=== PATIENT | male | born 1960 | race Native Hawaiian/Other Pacific Islander ===

== ENCOUNTER 2018-09-03 10:21 | Outpatient (CLI) | payer OTHER ==
[2018-09-03 10:51] LABS: PLATELET COUNT 204 K/uL (142-355)
[2018-09-03 11:06] LABS: POTASSIUM 4.1 mmol/L (3.6-5.2)
== END 2018-09-03 21:05 | disposition home or self-care (01) ==
LOC: LABW 10:21
PROVIDERS: Internal Medicine
DX: N18.3 Chronic kidney disease, stage 3 (moderate) (principal)
CPT/HCPCS: 36415; 80053; 81000; 82043; 82306; 82330; 82552; 82570; 82607; 82746; 83036; 83735; 83970; 84100; 84155; 84439; 84443; 84550; 85027; 86039; 86160

== ENCOUNTER 2019-03-04 12:19 | Outpatient (CLI) | payer OTHER ==
[2019-03-04 13:21] LABS: PLATELET COUNT 195 K/uL (142-355)
[2019-03-04 13:40] LABS: POTASSIUM 4.5 mmol/L (3.6-5.2)
== END 2019-03-04 20:32 | disposition home or self-care (01) ==
LOC: LABW 12:19
PROVIDERS: Internal Medicine
DX: I12.9 Hypertensive chronic kidney disease with stage 1 through stage 4 chronic kidney disease, or unspecified chronic kidney disease (principal)
CPT/HCPCS: 36415; 80053; 81000; 82043; 82570; 83735; 84100; 85027

== ENCOUNTER 2019-08-29 10:40 | Outpatient (CLI) | payer OTHER ==
[2019-08-29 10:59] LABS: PLATELET COUNT 211 K/uL (142-355)
== END 2019-08-29 19:25 | disposition home or self-care (01) ==
LOC: LABW 10:40
PROVIDERS: Internal Medicine
DX: N18.3 Chronic kidney disease, stage 3 (moderate) (principal)
CPT/HCPCS: 36415; 80053; 81000; 82330; 82570; 83735; 84100; 84155; 85027

== ENCOUNTER 2020-03-18 09:18 | Outpatient (CLI) | payer OTHER ==
[2020-03-18 09:50] LABS: PLATELET COUNT 202 K/uL (142-355)
[2020-03-18 10:54] LABS: POTASSIUM 4.1 mmol/L (3.6-5.2)
== END 2020-03-18 19:07 | disposition home or self-care (01) ==
LOC: LABW 09:18
PROVIDERS: Internal Medicine
DX: E11.22 Type 2 diabetes mellitus with diabetic chronic kidney disease (principal); N18.3 Chronic kidney disease, stage 3 (moderate)
CPT/HCPCS: 36415; 80053; 81000; 82330; 82570; 83036; 83735; 84100; 84155; 85027

== ENCOUNTER 2020-08-27 10:58 | Outpatient (CLI) | payer OTHER ==
[2020-08-27 11:27] LABS: PLATELET COUNT 268 K/uL (142-355)
== END 2020-08-27 19:33 | disposition home or self-care (01) ==
LOC: LABW 10:58
PROVIDERS: ATTEND Internal Medicine
DX: M25.512 Pain in left shoulder (principal); N18.30 Chronic kidney disease, stage 3 unspecified; E11.22 Type 2 diabetes mellitus with diabetic chronic kidney disease
CPT/HCPCS: 36415; 80053; 81000; 82330; 82570; 83036; 83735; 84100; 84155; 85027

== ENCOUNTER 2020-12-17 10:11 | Outpatient (CLI) | payer OTHER ==
[2020-12-17 10:48] LABS: PLATELET COUNT 187 K/uL (142-355)
[2020-12-17 11:00] LABS: POTASSIUM 3.9 mmol/L (3.6-5.2)
== END 2020-12-17 21:37 | disposition home or self-care (01) ==
LOC: LABW 10:11
PROVIDERS: ATTEND Nurse Practitioner
DX: N18.31 Chronic kidney disease, stage 3a (principal)
CPT/HCPCS: 36415; 80053; 81000; 82330; 82570; 83735; 84100; 84155; 85027

== ENCOUNTER 2020-12-22 13:02 | Outpatient (CLI) | payer OTHER | END 2020-12-22 22:15 | disposition home or self-care (01) | LOC: INF 13:02 | PROVIDERS: ATTEND Internal Medicine | DX: Z23 Encounter for immunization (principal) | CPT/HCPCS: 96372 ==

== ENCOUNTER 2021-01-13 13:00 | Outpatient (CLI) | payer OTHER | END 2021-01-13 22:21 | disposition home or self-care (01) | LOC: INF 13:00 | PROVIDERS: ATTEND Internal Medicine | DX: Z23 Encounter for immunization (principal) | CPT/HCPCS: 96372 ==

== ENCOUNTER 2021-09-05 10:05 | Outpatient (CLI) | payer OTHER ==
[2021-09-05 10:28] LABS: PLATELET COUNT 214 K/uL (142-355)
[2021-09-05 10:44] LABS: POTASSIUM 4.1 mmol/L (3.6-5.2)
== END 2021-09-05 21:00 | disposition home or self-care (01) ==
LOC: LABW 10:05
PROVIDERS: ATTEND Internal Medicine
DX: E11.22 Type 2 diabetes mellitus with diabetic chronic kidney disease (principal); N18.31 Chronic kidney disease, stage 3a; E55.9 Vitamin D deficiency, unspecified
CPT/HCPCS: 36415; 80053; 81000; 82306; 82330; 82570; 83036; 83735; 84100; 84155; 85027

== ENCOUNTER 2022-03-03 10:37 | Outpatient (CLI) | payer OTHER ==
[2022-03-03 10:57] LABS: PLATELET COUNT 200 K/uL (142-355)
[2022-03-03 11:09] LABS: POTASSIUM 4.2 mmol/L (3.6-5.2)
== END 2022-03-03 19:27 | disposition home or self-care (01) ==
LOC: LABW 10:37
PROVIDERS: ATTEND Internal Medicine
DX: E11.22 Type 2 diabetes mellitus with diabetic chronic kidney disease (principal); N18.31 Chronic kidney disease, stage 3a; E55.9 Vitamin D deficiency, unspecified
CPT/HCPCS: 36415; 80053; 81000; 82306; 82330; 82570; 83036; 83735; 84100; 84156; 85027

== ENCOUNTER 2022-08-24 10:57 | Outpatient (CLI) | payer OTHER ==
[2022-08-24 11:19] LABS: PLATELET COUNT 214 K/uL (142-355)
[2022-08-24 11:53] LABS: POTASSIUM 4.1 mmol/L (3.6-5.2)
== END 2022-08-24 18:58 | disposition home or self-care (01) ==
LOC: LABW 10:57
PROVIDERS: ATTEND Internal Medicine
DX: E11.22 Type 2 diabetes mellitus with diabetic chronic kidney disease (principal); N18.31 Chronic kidney disease, stage 3a; E55.9 Vitamin D deficiency, unspecified
CPT/HCPCS: 36415; 80053; 81002; 82306; 82330; 82570; 83036; 83735; 84100; 84156; 85027

== ENCOUNTER 2023-01-25 09:57 | Outpatient (CLI) | payer OTHER ==
[2023-01-25 10:12] LABS: PLATELET COUNT 212 K/uL (142-355)
[2023-01-25 10:32] LABS: POTASSIUM 4.3 mmol/L (3.6-5.2)
== END 2023-01-25 17:00 | disposition home or self-care (01) ==
LOC: LABW 09:57
PROVIDERS: ATTEND Internal Medicine
DX: E11.22 Type 2 diabetes mellitus with diabetic chronic kidney disease (principal); N18.31 Chronic kidney disease, stage 3a; E55.9 Vitamin D deficiency, unspecified
CPT/HCPCS: 36415; 80053; 81002; 82306; 82330; 82570; 83036; 83735; 84100; 84156; 85027